=== PATIENT | male | born 1980 ===

== ENCOUNTER 2017-10-19 12:58 | Emergency (ER) | payer SELFPAY ==
--- NOTE | 2017-10-19 13:30 | C.PDOC ---
History Of Present Illness 37 y/o female presents to the ER for evaluation of right mouth numbness which started yesterday. Patient states that he used a new toothpaste yesterday which he has never used before. Patient does not have any other complaints. Time Seen by Provider: 10/19/17 13:28 Chief Complaint (Nursing): Medical Clearance History Per: Patient History/Exam Limitations: no limitations Onset/Duration Of Symptoms: Days Current Symptoms Are (Timing): Still Present Severity: Moderate Past Medical History Reviewed: Historical Data, Nursing Documentation, Vital Signs Vital Signs: Last Vital Signs Temp 97.8 F 10/19/17 13:25 Pulse 76 10/19/17 13:25 Resp 18 10/19/17 13:25 BP 126/84 10/19/17 13:25 Pulse Ox 98 10/19/17 14:56 - Medical History PMH: No Chronic Diseases Surgical History: No Surg Hx Family History: States: No Known Family Hx - Social History Hx Alcohol Use: No Hx Substance Use: No Review Of Systems Except As Marked, All Systems Reviewed And Found Negative. Constitutional: Negative for: Fever, Chills ENT: Positive for: Mouth Pain (right mouth pain) Physical Exam - Physical Exam Appears: Non-toxic, No Acute Distress Skin: Normal Color, Warm Head: Atraumatic, Normacephalic, Other (no headache, no facial droop ) Eye(s): bilateral: Normal Inspection Ear(s): Bilateral: Normal Nose: Normal Oral Mucosa: Moist Teeth: Normal Dentition Throat: Normal, No Erythema, No Exudate Neck: Supple Chest: Symmetrical Cardiovascular: Rhythm Regular Respiratory: Normal Breath Sounds, No Accessory Muscle Use, No Rales, No Rhonchi , No Wheezing Extremity: Normal ROM Neurological/Psych: Oriented x3, Normal Speech, Normal Motor, Normal Sensation ED Course And Treatment O2 Sat by Pulse Oximetry: 98 (RA) Pulse Ox Interpretation: Normal Medical Decision Making Medical Decision Making: minor R inner cheek parasthesia, no neurological deficits, prob related to new toothpaste started yesterday no s/s of Yang's Palsy, nor facial droop. Disposition Doctor Will See Patient In The: Office Counseled Patient/Family Regarding: Studies Performed, Diagnosis - Disposition Referrals: [facility] at [facility] [Outside] Disposition: HOME/ ROUTINE Disposition Time: 13:29 Condition: GOOD Additional Instructions: emi christiano [facility] Sigue so practica normal NO evidencia de derrame cerebral ni' Yang's Palsy. Forms: General Discharge Instructions, [facility] (Mohawk) Print Language: LIBERIAN - Clinical Impression Clinical Impression: Facial tingling sensation - Scribe Statement The provider has reviewed the documentation as recorded by the Scribe Charleen Scott Provider Attestation: All medical record entries made by the Scribe were at my direction and personally dictated by me. I have reviewed the chart and agree that the record accurately reflects my personal performance of the history, physical exam, medical decision making, and the department course for this patient. I have also personally directed, reviewed, and agree with the discharge instructions and disposition.
[2017-10-19 13:38] VITALS: BP 126/84; PULSE 76; RESP 18; TEMP 97.8; O2SAT 98
== END 2017-10-19 13:45 | disposition home or self-care (01) ==
LOC: C.ER 12:58
DX: R20.2 Paresthesia of skin (principal)

== ENCOUNTER 2018-09-13 19:20 | Emergency (ER) | payer SELFPAY ==
[2018-09-13 19:39] VITALS: PULSE 75; TEMP 98; O2SAT 98
--- NOTE | 2018-09-13 19:59 | C.PDOC ---
History Of Present Illness 38 year old male presents to the emergency department for suture removal. Patient sustained a laceration to the dorsal aspect of the left hand 9 days ago. He denies pain to area, fever, chills, nausea, vomiting. Time Seen by Provider: 09/13/18 19:46 Chief Complaint (Nursing): Wound Check History Per: Patient History/Exam Limitations: no limitations Onset/Duration Of Symptoms: Days Ago (9) Current Symptoms Are (Timing): Better Location Of Injury: Left: Hand Past Medical History Reviewed: Historical Data, Nursing Documentation, Vital Signs Vital Signs: Last Vital Signs Temp 98.0 F 09/13/18 19:34 Pulse 75 09/13/18 19:34 Resp BP Pulse Ox 98 09/13/18 19:34 - Medical History PMH: No Chronic Diseases Surgical History: No Surg Hx Family History: States: No Known Family Hx - Social History Hx Alcohol Use: No Hx Substance Use: No - Immunization History Hx Tetanus Toxoid Vaccination: Yes Hx Influenza Vaccination: No Hx Pneumococcal Vaccination: No Review Of Systems Except As Marked, All Systems Reviewed And Found Negative. Constitutional: Negative for: Fever, Chills Gastrointestinal: Negative for: Nausea, Vomiting Skin: Positive for: Other (laceration to left hand) Physical Exam - Physical Exam Appears: Well, Non-toxic, No Acute Distress Skin: Normal Color, Warm, Dry, Other ([address] to the dorsal aspect of the left hand, with localized erythema. No fluctuance. No drainage. ) Head: Atraumatic Eye(s): bilateral: Normal Inspection Chest: Symmetrical Extremity: Normal ROM (of all fingers on left hand), No Tenderness, Capillary Refill (< 2 seconds), No Swelling Pulses: Left Radial: Normal, Right Radial: Normal Neurological/Psych: Oriented x3, Normal Motor, Normal Sensation ED Course And Treatment O2 Sat by Pulse Oximetry: 98 (RA) Pulse Ox Interpretation: Normal Progress Note: Sutures removed from the wound.Wound is well healed. Patient tolerated well. Patient instructed regarding wound care, and is clear for discharge. Disposition Counseled Patient/Family Regarding: Diagnosis, Need For Followup, Rx Given - Disposition Referrals: [facility] [Outside] Disposition: HOME/ ROUTINE Disposition Time: 19:56 Condition: STABLE Additional Instructions: Please follow up with PMD Apply neosporin ointment Return to ER if worse Instructions: Stitches Removal Forms: [facility] (Slovenian) - Clinical Impression Clinical Impression: Encounter for removal of sutures - PA / PACKER INSPECTOR / Resident Statement MD/DO has reviewed & agrees with the documentation as recorded. - Scribe Statement The provider has reviewed the documentation as recorded by the Scribe ([place] Do) All medical record entries made by the Scribe were at my direction and personally dictated by me. I have reviewed the chart and agree that the record accurately reflects my personal performance of the history, physical exam, medical decision making, and the department course for this patient. I have also personally directed, reviewed, and agree with the discharge instructions and disposition.
== END 2018-09-13 20:03 | disposition home or self-care (01) ==
LOC: C.ER 19:20
DX: S61.412D Laceration without foreign body of left hand, subsequent encounter (principal)